=== PATIENT | female | born 1980 ===

== ENCOUNTER 2025-04-21 21:31 | Inpatient (IN) | payer OTHER, SELFPAY ==
[2025-04-21 21:55] VITALS: BMI 38.1
[2025-04-21 22:10] VITALS: BP 121/66; PULSE 75; RESP 18; TEMP 36.7; O2SAT 95
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
[2025-04-22 07:00] VITALS: BMI 38.2
[2025-04-22 07:53] VITALS: BP 100/55; PULSE 74; RESP 16; TEMP 36.6; O2SAT 98
[2025-04-22 08:00] VITALS: BP 100/55; PULSE 74; RESP 16; TEMP 36.6; O2SAT 98
[2025-04-22 09:19] LABS: Estimated Average Glucose 137 mg/dL; Hemoglobin A1C 166.5742 umol/L; Hemoglobin A1c % 6.4 % (<6.0); Total Hemoglobin (HGBA1C) 3557.7658 umol/L
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
[2025-04-22 09:24] LABS: Alanine Aminotransferase 63 U/L (0-31); Albumin Level 4.2 g/dL (3.5-5.0); Alkaline Phosphatase 76 U/L (39-117); Anion Gap 12 (12-20); Aspartate Amino Transferase 64 U/L (5-31); Bilirubin Total 0.4 mg/dL (0.0-1.0); Blood Urea Nitrogen 11 mg/dL (9-16); Calcium 9.4 mg/dL (8.4-10.2); Carbon Dioxide 26 mmol/L (22-29); Chloride 107 mmol/L (96-108); Cholesterol 175 mg/dL (<200); Creatinine Clr Calc Pharmacy 113.1; Estimated Glomerular Filt Rate > 60; Glucose Random 112 mg/dL (60-115); HDL Cholesterol 26 mg/dL (>40); LDL Cholesterol Calculated 112 mg/dL (<100); Potassium 4.2 mmol/L (3.3-5.1); Sodium 141 mmol/L (135-145); Total Protein 7.8 g/dL (6.5-8.0); Triglycerides 187 mg/dL (<150)
[2025-04-22 09:42] LABS: Free T4 (Free Thyroxine) 1.02 ng/dL (0.71-1.85); Thyroid Stimulating Hormone 1.28 uIU/mL (0.32-4.0)
[2025-04-22 09:53] LABS: Folate 12.9 ng/mL (> or = 4.0); Vitamin B12 778 pg/mL (200-900)
[2025-04-22] MEDS: Venlafaxine HCl ER 150 MG CAP.ER.24H PO ×2 (10:34→21:33)
[2025-04-22] MEDS: Atorvastatin Calcium 10 MG TABLET PO (10:34)
[2025-04-22] MEDS: lamoTRIgine 100 MG TABLET PO ×2 (10:34→21:33)
[2025-04-22] MEDS: risperiDONE 1 MG TABLET PO ×2 (10:34→21:33)
[2025-04-22] MEDS: busPIRone HCl 5 MG TABLET PO ×3 (10:34→21:30)
[2025-04-22] MEDS: Gabapentin 300 MG CAPSULE 600 MG PO (10:34)
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
[2025-04-22] MEDS: metFORMIN HCl 1,000 MG TABLET 1000 MG PO (14:21)
[2025-04-22] MEDS: Nicotine 21 MG PATCH.TD24 TRANSDERMA (14:22)
[2025-04-22] MEDS: metFORMIN HCl ER 500 MG TAB.ER.24H 1000 MG PO (17:46)
[2025-04-22] MEDS: hydrOXYzine HCL 25 MG TABLET PO (17:48)
[2025-04-22 19:30] VITALS: BP 122/62; PULSE 95; RESP 16; TEMP 36.4; O2SAT 95
[2025-04-22 21:30] VITALS: BP 119/72
[2025-04-22] MEDS: Doxazosin Mesylate 2 MG TABLET PO (21:30)
[2025-04-23 08:18] VITALS: BP 126/63; PULSE 80; RESP 14; TEMP 36.9; O2SAT 95
[2025-04-23] MEDS: Venlafaxine HCl ER 150 MG CAP.ER.24H PO ×2 (09:04→20:33)
[2025-04-23] MEDS: risperiDONE 1 MG TABLET PO ×2 (09:04→20:33)
[2025-04-23] MEDS: Gabapentin 300 MG CAPSULE 600 MG PO (09:04)
[2025-04-23] MEDS: lamoTRIgine 100 MG TABLET PO ×2 (09:04→20:34)
[2025-04-23] MEDS: busPIRone HCl 5 MG TABLET PO ×3 (09:04→20:33)
[2025-04-23] MEDS: Atorvastatin Calcium 10 MG TABLET PO (09:04)
[2025-04-23] MEDS: Pantoprazole Sodium 20 MG TABLET.DR 40 MG PO (09:07)
--- NOTE | 2025-04-23 09:36 | P.PNPSI_ITS ---
Subjective Subjective Date of Service: 04/23/25 Reason For Visit: bipolar disorder unspecified Subjective Notes: 3 Day Interim History: Patient reports feeling fine today; pt stated, It's really nice here. I feel comfortable . Pt reports she is hoping to return to her sober home when discharged. per nursing, slept 8 hours. denies SI/HI/VH/AH. 3 day up on 03/27/25. continue current tx plan. Medication Compliance: Yes Side effects from medications: No Attending Groups: Intermittent Mental Status Exam Mental Status Exam Narrative: Pt is alert and oriented; behavior is cooperative and calm; dressed in casual attire; mood is described as fine ; eye contact appropriate; Speech is normal rate, volume and not pressured; thought process is organized and goal directed; Thought content is on tx; denies SI/HI/VH/AH. Diagnostics Vital Signs (24Hr): Vital Signs - 24 hr 04/22/25 19:30 04/22/25 21:30 04/23/25 08:18 Temperature 97.6 F 98.5 F Pulse Rate 95 80 Respiratory Rate 16 14 Blood Pressure 122/62 119/72 126/63 Pulse Oximetry 95 95 Oxygen Delivery Method Room Air Room Air BMI result Body Mass Index 38.2 Labs 04/22/25 08:36 Labs: Laboratory Results - last 48 hr 04/22/25 08:36 Sodium 141 Potassium 4.2 Chloride 107 Carbon Dioxide 26 Anion Gap 12 BUN 11 Creatinine 0.64 Estim Creat Clear Calc 113.1 Estimated GFR > 60 Random Glucose 112 Estimat Average Glucose 137 Hemoglobin A1c % 6.4 H Calcium 9.4 Total Bilirubin 0.4 AST 64 H ALT 63 H Alkaline Phosphatase 76 Total Protein 7.8 Albumin 4.2 Triglycerides 187 H Cholesterol 175 LDL Cholesterol, Calc 112 H HDL Cholesterol 26 L Vitamin B12 778 Folate 12.9 TSH 1.28 Free T4 1.02 Medications Medications Current Medications Acetaminophen (Acetaminophen 325 Mg Tablet) 650 mg PO Q6H PRN PRN Reason: Headache/Pain, Scale 1-10 Al Hydroxide/Mg Hydroxide (Magnesium Hydrox/Alum Hydrox 30 Ml Oral.Susp) 30 ml PO Q6H PRN PRN Reason: Heartburn/Nausea Atorvastatin Calcium (Atorvastatin Calcium 10 Mg Tablet) 10 mg PO DAILY [facility] Last Admin: 04/23/25 09:04 Dose: 10 mg Buspirone HCl (Buspirone Hcl 5 Mg Tablet) 5 mg PO TID [facility] Last Admin: 04/23/25 09:04 Dose: 5 mg Diphenoxylate HCl/Atropine (Diphenoxylate/Atrop 2.5/0.025 Tablet) 1 tab PO QID PRN PRN Reason: Diarrhea Doxazosin Mesylate (Doxazosin Mesylate 2 Mg Tablet) 2 mg PO BEDTIME [facility]; Protocol Last Admin: 04/22/25 21:30 Dose: 2 mg Gabapentin (Gabapentin 300 Mg Capsule) 600 mg PO DAILY [facility] Last Admin: 04/23/25 09:04 Dose: 600 mg Hydroxyzine HCl (Hydroxyzine Hcl 25 Mg Tablet) 25 mg PO Q6H PRN PRN Reason: mild anxiety Last Admin: 04/22/25 17:48 Dose: 25 mg Ibuprofen (Ibuprofen 400 Mg Tablet) 400 mg PO BID PRN PRN Reason: edema Lamotrigine (Lamotrigine 100 Mg Tablet) 100 mg PO BID [facility] Last Admin: 04/23/25 09:04 Dose: 100 mg Magnesium Hydroxide (Milk Of Magnesia 30 Ml Oral.Susp) 30 ml PO DAILY PRN PRN Reason: Constipation Metformin HCl (Metformin Hcl Er 500 Mg Tab.Er.24h) 1,000 mg PO DAILY@1700 [facility] Last Admin: 04/22/25 17:46 Dose: 1,000 mg Metformin HCl (Metformin Hcl 1,000 Mg Tablet) 1,000 mg PO DAILY [facility] Last Admin: 04/22/25 14:21 Dose: 1,000 mg Naproxen (Naproxen 500 Mg Tablet) 500 mg PO BID [facility] Last Admin: 04/23/25 09:04 Dose: Not Given Nicotine Polacrilex (Nicotine Polacrilex 2 Mg Gum) 2 mg BUCCAL Q1H PRN PRN Reason: Nicotine Cravings Non-Formulary Medication (Atomoxetine) 40 mg PO DAILY [facility] Non-Formulary Medication (Tirzepatide [Mounjaro]) 5 mg SUBCUT Q7D [facility] Pantoprazole Sodium (Pantoprazole Sodium 20 Mg Tablet.Dr) 40 mg PO DAILY PRN PRN Reason: acid reflux Last Admin: 04/23/25 09:07 Dose: 40 mg Risperidone (Risperidone 1 Mg Tablet) 1 mg PO BID [facility] Last Admin: 04/23/25 09:04 Dose: 1 mg Trazodone HCl (Trazodone Hcl 50 Mg Tablet) 50 mg PO BEDTIME MRX1 PRN PRN Reason: Insomnia Venlafaxine HCl (Venlafaxine Hcl Er 150 Mg Cap.Er.24h) 150 mg PO BID [facility] Last Admin: 04/23/25 09:04 Dose: 150 mg Allergies Allergies Allergy/AdvReac Type Severity Reaction Status Date / Time No Known Allergies Allergy Verified 04/21/25 22:11 Assessment & Plan Assessment & Plan (1) Bipolar disorder: Status: Acute Code(s): F31.9 - Bipolar disorder, unspecified (2) PTSD (post-traumatic stress disorder): Status: Acute Code(s): F43.10 - Post-traumatic stress disorder, unspecified (3) Cocaine use disorder: Status: Acute Code(s): F14.10 - Cocaine abuse, uncomplicated (4) Opioid use disorder in remission: Status: Acute Code(s): F11.91 - Opioid use, unspecified, in remission Plan Patient is a 45-year-old female with history of bipolar disorder, PTSD, cocaine use disorder and opiate use disorder, who self presented to [facility] due to suicidal ideation secondary to increased depression from recently losing her son. Plan: CV 15 minute safety checks Continue home medications Obtain collateral Encourage groups Discharge planning 04/23: Patient reports feeling good today; pt stated, It's really nice here. I feel comfortable . Pt reports she is hoping to return to her sober home when discharged. per nursing, slept 8 hours. denies SI/HI/VH/AH. 3 day up on 03/27/25. continue current tx plan. Patient educated on: diagnosis, medication risk/benefits and therapeutic strategies Reason for continued inpatient stay Substantial Risk for: med/psych decompensation Time Spent With Patient Time: Total time managing care of this patient today _20___ minutes.
[2025-04-23] MEDS: Nicotine Polacrilex 2 MG GUM BUCCAL ×2 (12:44→20:35)
[2025-04-23] MEDS: metFORMIN HCl ER 500 MG TAB.ER.24H 1000 MG PO (17:20)
[2025-04-23] MEDS: hydrOXYzine HCL 25 MG TABLET PO (17:50)
[2025-04-23] MEDS: Diphenoxylate/Atrop 2.5/0.025 TABLET 1 TAB PO (19:08)
[2025-04-23 20:00] VITALS: BP 118/66; PULSE 93; RESP 18; TEMP 37; O2SAT 93
[2025-04-23 20:34] VITALS: BP 118/66
[2025-04-23] MEDS: Doxazosin Mesylate 2 MG TABLET PO (20:34)
[2025-04-23] MEDS: traZODone HCL 50 MG TABLET PO (20:34)
[2025-04-23] MEDS: Ibuprofen 400 MG TABLET PO (20:35)
[2025-04-24 08:10] VITALS: BP 100/52; PULSE 83; RESP 16; TEMP 36.8; O2SAT 93
[2025-04-24] MEDS: Atorvastatin Calcium 10 MG TABLET PO (08:51)
[2025-04-24] MEDS: busPIRone HCl 5 MG TABLET PO ×3 (08:51→21:09)
[2025-04-24] MEDS: Gabapentin 300 MG CAPSULE 600 MG PO (08:51)
[2025-04-24] MEDS: risperiDONE 1 MG TABLET PO ×2 (08:51→21:12)
[2025-04-24] MEDS: Venlafaxine HCl ER 150 MG CAP.ER.24H PO ×2 (08:51→21:11)
[2025-04-24] MEDS: lamoTRIgine 100 MG TABLET PO ×2 (08:51→21:11)
--- NOTE | 2025-04-24 10:17 | HO.PSYCHPN ---
Subjective Subjective Date of Service: 04/24/25 Reason For Visit: bipolar disorder unspecified Subjective Notes: Conditional Voluntary Interim History: Pt slept through the night. She reports she appreciates support given here on the unit. She is still struggling with of son. However, she denies SI/HI. She reports current medications helpful. Review of Systems Review of Systems Denies any shortness of breath, chest pain, dizziness, lightheadedness, abdominal pain or discomfort, nausea vomiting or diarrhea Mental Status Exam Mental Status Exam Narrative: Pt is alert and oriented; behavior is cooperative and calm; dressed in casual attire; mood is described as fine ; eye contact appropriate; Speech is normal rate, volume and not pressured; thought process is organized and goal directed; Thought content is on tx; denies SI/HI/VH/AH. Diagnostics Vital Signs (24Hr): Vital Signs - 24 hr 04/23/25 20:00 04/23/25 20:34 04/24/25 08:10 Temperature 98.6 F 98.2 F Pulse Rate 93 83 Respiratory Rate 18 16 Blood Pressure 118/66 118/66 100/52 L Pulse Oximetry 93 93 Oxygen Delivery Method Room Air Room Air BMI result Body Mass Index 38.2 Labs 04/22/25 08:36 Medications Medications Current Medications Acetaminophen (Acetaminophen 325 Mg Tablet) 650 mg PO Q6H PRN PRN Reason: Headache/Pain, Scale 1-10 Al Hydroxide/Mg Hydroxide (Magnesium Hydrox/Alum Hydrox 30 Ml Oral.Susp) 30 ml PO Q6H PRN PRN Reason: Heartburn/Nausea Atorvastatin Calcium (Atorvastatin Calcium 10 Mg Tablet) 10 mg PO DAILY [facility] Last Admin: 04/24/25 08:51 Dose: 10 mg Buspirone HCl (Buspirone Hcl 5 Mg Tablet) 5 mg PO TID [facility] Last Admin: 04/24/25 08:51 Dose: 5 mg Diphenoxylate HCl/Atropine (Diphenoxylate/Atrop 2.5/0.025 Tablet) 1 tab PO QID PRN PRN Reason: Diarrhea Last Admin: 04/23/25 19:08 Dose: 1 tab Doxazosin Mesylate (Doxazosin Mesylate 2 Mg Tablet) 2 mg PO BEDTIME [facility]; Protocol Last Admin: 04/23/25 20:34 Dose: 2 mg Gabapentin (Gabapentin 300 Mg Capsule) 600 mg PO DAILY [facility] Last Admin: 04/24/25 08:51 Dose: 600 mg Hydroxyzine HCl (Hydroxyzine Hcl 25 Mg Tablet) 25 mg PO Q6H PRN PRN Reason: mild anxiety Last Admin: 04/23/25 17:50 Dose: 25 mg Ibuprofen (Ibuprofen 400 Mg Tablet) 400 mg PO BID PRN PRN Reason: edema Last Admin: 04/23/25 20:35 Dose: 400 mg Lamotrigine (Lamotrigine 100 Mg Tablet) 100 mg PO BID [facility] Last Admin: 04/24/25 08:51 Dose: 100 mg Magnesium Hydroxide (Milk Of Magnesia 30 Ml Oral.Susp) 30 ml PO DAILY PRN PRN Reason: Constipation Metformin HCl (Metformin Hcl Er 500 Mg Tab.Er.24h) 1,000 mg PO DAILY@1700 [facility] Last Admin: 04/23/25 17:20 Dose: 1,000 mg Metformin HCl (Metformin Hcl 1,000 Mg Tablet) 1,000 mg PO DAILY [facility] Last Admin: 04/22/25 14:21 Dose: 1,000 mg Naproxen (Naproxen 500 Mg Tablet) 500 mg PO BID [facility] Last Admin: 04/24/25 09:01 Dose: Not Given Nicotine Polacrilex (Nicotine Polacrilex 2 Mg Gum) 2 mg BUCCAL Q1H PRN PRN Reason: Nicotine Cravings Last Admin: 04/23/25 20:35 Dose: 2 mg Non-Formulary Medication (Atomoxetine) 40 mg PO DAILY [facility] Non-Formulary Medication (Tirzepatide [Mounjaro]) 5 mg SUBCUT Q7D [facility] Pantoprazole Sodium (Pantoprazole Sodium 20 Mg Tablet.Dr) 40 mg PO DAILY PRN PRN Reason: acid reflux Last Admin: 04/23/25 09:07 Dose: 40 mg Risperidone (Risperidone 1 Mg Tablet) 1 mg PO BID [facility] Last Admin: 04/24/25 08:51 Dose: 1 mg Trazodone HCl (Trazodone Hcl 50 Mg Tablet) 50 mg PO BEDTIME MRX1 PRN PRN Reason: Insomnia Last Admin: 04/23/25 20:34 Dose: 50 mg Venlafaxine HCl (Venlafaxine Hcl Er 150 Mg Cap.Er.24h) 150 mg PO BID [facility] Last Admin: 04/24/25 08:51 Dose: 150 mg Allergies Allergies Allergy/AdvReac Type Severity Reaction Status Date / Time No Known Allergies Allergy Verified 04/21/25 22:11 Assessment & Plan Assessment & Plan (1) Bipolar disorder: Status: Acute Code(s): F31.9 - Bipolar disorder, unspecified (2) PTSD (post-traumatic stress disorder): Status: Acute Code(s): F43.10 - Post-traumatic stress disorder, unspecified (3) Cocaine use disorder: Status: Acute Code(s): F14.10 - Cocaine abuse, uncomplicated (4) Opioid use disorder in remission: Status: Acute Code(s): F11.91 - Opioid use, unspecified, in remission Plan Patient is a 45-year-old female with history of bipolar disorder, PTSD, cocaine use disorder and opiate use disorder, who self presented to [facility] due to suicidal ideation secondary to increased depression from recently losing her son. Plan: CV 15 minute safety checks Continue home medications Obtain collateral Encourage groups Discharge planning 04/23: Patient reports feeling good today; pt stated, It's really nice here. I feel comfortable . Pt reports she is hoping to return to her sober home when discharged. per nursing, slept 8 hours. denies SI/HI/VH/AH. 3 day up on 03/27/25. continue current tx plan. 04/24 continue tx. Reason for continued inpatient stay Substantial Risk for: inability to function Time Spent With Patient Time: Total time managing care of this patient today ____ minutes.
[2025-04-24] MEDS: metFORMIN HCl ER 500 MG TAB.ER.24H 1000 MG PO (15:30)
[2025-04-24] MEDS: Lidocaine 4 % Patch ADH..PATCH 1 PATCH TRANSDERMA (15:31)
[2025-04-24] MEDS: hydrOXYzine HCL 25 MG TABLET PO ×2 (15:33→21:09)
[2025-04-24] MEDS: Nicotine Polacrilex 2 MG GUM BUCCAL ×2 (19:30→21:11)
[2025-04-24 20:00] VITALS: BP 123/60; PULSE 97; RESP 18; TEMP 36.6; O2SAT 96
[2025-04-24] MEDS: traZODone HCL 50 MG TABLET PO (21:09)
[2025-04-24] MEDS: Diphenoxylate/Atrop 2.5/0.025 TABLET 1 TAB PO (21:09)
[2025-04-24] MEDS: NaPROXEN 500 MG TABLET PO (21:09)
[2025-04-24] MEDS: Ibuprofen 400 MG TABLET PO (21:11)
[2025-04-24 21:14] VITALS: BP 123/60
[2025-04-24] MEDS: Doxazosin Mesylate 2 MG TABLET PO (21:14)
[2025-04-25 08:22] VITALS: BP 120/59; PULSE 80; RESP 16; TEMP 36.6; O2SAT 99
[2025-04-25] MEDS: Atorvastatin Calcium 10 MG TABLET PO (10:20)
[2025-04-25] MEDS: busPIRone HCl 5 MG TABLET PO ×3 (10:20→21:43)
[2025-04-25] MEDS: risperiDONE 1 MG TABLET PO ×2 (10:20→21:43)
[2025-04-25] MEDS: Venlafaxine HCl ER 150 MG CAP.ER.24H PO ×2 (10:20→21:43)
[2025-04-25] MEDS: Gabapentin 300 MG CAPSULE 600 MG PO (10:20)
[2025-04-25] MEDS: Lidocaine 4 % Patch ADH..PATCH 1 PATCH TRANSDERMA (10:21)
[2025-04-25] MEDS: lamoTRIgine 100 MG TABLET PO ×2 (10:21→21:43)
[2025-04-25] MEDS: hydrOXYzine HCL 25 MG TABLET PO (14:36)
[2025-04-25] MEDS: Nicotine Polacrilex 2 MG GUM BUCCAL ×2 (14:36→21:44)
[2025-04-25] MEDS: metFORMIN HCl ER 500 MG TAB.ER.24H 1000 MG PO (16:40)
[2025-04-25 20:01] VITALS: BP 113/64; PULSE 89; RESP 18; TEMP 36.9; O2SAT 95
[2025-04-25 21:43] VITALS: BP 125/66
[2025-04-25] MEDS: traZODone HCL 50 MG TABLET PO (21:43)
[2025-04-25] MEDS: Doxazosin Mesylate 2 MG TABLET PO (21:43)
--- NOTE | 2025-04-25 21:48 | HO.PSYCHPN ---
Subjective Subjective Date of Service: 04/25/25 Reason For Visit: bipolar disorder unspecified Subjective Notes: Conditional Voluntary Interim History: Pt slept through the night. She reports she appreciates support given here on the unit. She is still struggling with of son. However, she denies SI/HI. She reports current medications helpful. Review of Systems Review of Systems Denies any shortness of breath, chest pain, dizziness, lightheadedness, abdominal pain or discomfort, nausea vomiting or diarrhea Mental Status Exam Mental Status Exam Narrative: Pt is alert and oriented; behavior is cooperative and calm; dressed in casual attire; mood is described as fine ; eye contact appropriate; Speech is normal rate, volume and not pressured; thought process is organized and goal directed; Thought content is on tx; denies SI/HI/VH/AH. Diagnostics Vital Signs (24Hr): Vital Signs - 24 hr 04/25/25 08:22 04/25/25 20:01 04/25/25 21:43 Temperature 97.9 F 98.5 F Pulse Rate 80 89 Respiratory Rate 16 18 Blood Pressure 120/59 L 113/64 125/66 Pulse Oximetry 99 95 Oxygen Delivery Method Room Air Room Air BMI result Body Mass Index 38.2 Labs 04/22/25 08:36 Medications Medications Current Medications Acetaminophen (Acetaminophen 325 Mg Tablet) 650 mg PO Q6H PRN PRN Reason: Headache/Pain, Scale 1-10 Al Hydroxide/Mg Hydroxide (Magnesium Hydrox/Alum Hydrox 30 Ml Oral.Susp) 30 ml PO Q6H PRN PRN Reason: Heartburn/Nausea Atorvastatin Calcium (Atorvastatin Calcium 10 Mg Tablet) 10 mg PO DAILY [facility] Last Admin: 04/25/25 10:20 Dose: 10 mg Buspirone HCl (Buspirone Hcl 5 Mg Tablet) 5 mg PO TID [facility] Last Admin: 04/25/25 21:43 Dose: 5 mg Diphenoxylate HCl/Atropine (Diphenoxylate/Atrop 2.5/0.025 Tablet) 1 tab PO QID PRN PRN Reason: Diarrhea Last Admin: 04/24/25 21:09 Dose: 1 tab Doxazosin Mesylate (Doxazosin Mesylate 2 Mg Tablet) 2 mg PO BEDTIME [facility]; Protocol Last Admin: 04/25/25 21:43 Dose: 2 mg Gabapentin (Gabapentin 300 Mg Capsule) 600 mg PO DAILY [facility] Last Admin: 04/25/25 10:20 Dose: 600 mg Hydroxyzine HCl (Hydroxyzine Hcl 25 Mg Tablet) 25 mg PO Q6H PRN PRN Reason: mild anxiety Last Admin: 04/25/25 14:36 Dose: 25 mg Ibuprofen (Ibuprofen 400 Mg Tablet) 400 mg PO BID PRN PRN Reason: edema Last Admin: 04/24/25 21:11 Dose: 400 mg Lamotrigine (Lamotrigine 100 Mg Tablet) 100 mg PO BID [facility] Last Admin: 04/25/25 21:43 Dose: 100 mg Lidocaine (Lidocaine 4 % Patch Adh..Patch) 1 patch TRANSDERMA DAILY [facility]; Protocol Last Admin: 04/25/25 10:21 Dose: 1 patch Magnesium Hydroxide (Milk Of Magnesia 30 Ml Oral.Susp) 30 ml PO DAILY PRN PRN Reason: Constipation Metformin HCl (Metformin Hcl Er 500 Mg Tab.Er.24h) 1,000 mg PO DAILY@1700 [facility] Last Admin: 04/25/25 16:40 Dose: 1,000 mg Naproxen (Naproxen 500 Mg Tablet) 500 mg PO BID [facility] Last Admin: 04/25/25 21:45 Dose: Not Given Nicotine Polacrilex (Nicotine Polacrilex 2 Mg Gum) 2 mg BUCCAL Q1H PRN PRN Reason: Nicotine Cravings Last Admin: 04/25/25 21:44 Dose: 2 mg Non-Formulary Medication (Atomoxetine) 40 mg PO DAILY [facility] Non-Formulary Medication (Tirzepatide [Mounjaro]) 5 mg SUBCUT Q7D [facility] Pantoprazole Sodium (Pantoprazole Sodium 20 Mg Tablet.Dr) 40 mg PO DAILY PRN PRN Reason: acid reflux Last Admin: 04/23/25 09:07 Dose: 40 mg Risperidone (Risperidone 1 Mg Tablet) 1 mg PO BID [facility] Last Admin: 04/25/25 21:43 Dose: 1 mg Trazodone HCl (Trazodone Hcl 50 Mg Tablet) 50 mg PO BEDTIME MRX1 PRN PRN Reason: Insomnia Last Admin: 04/25/25 21:43 Dose: 50 mg Venlafaxine HCl (Venlafaxine Hcl Er 150 Mg Cap.Er.24h) 150 mg PO BID [facility] Last Admin: 04/25/25 21:43 Dose: 150 mg Allergies Allergies Allergy/AdvReac Type Severity Reaction Status Date / Time No Known Allergies Allergy Verified 04/21/25 22:11 Assessment & Plan Assessment & Plan (1) Bipolar disorder: Status: Acute Code(s): F31.9 - Bipolar disorder, unspecified (2) PTSD (post-traumatic stress disorder): Status: Acute Code(s): F43.10 - Post-traumatic stress disorder, unspecified (3) Cocaine use disorder: Status: Acute Code(s): F14.10 - Cocaine abuse, uncomplicated (4) Opioid use disorder in remission: Status: Acute Code(s): F11.91 - Opioid use, unspecified, in remission Plan Patient is a 45-year-old female with history of bipolar disorder, PTSD, cocaine use disorder and opiate use disorder, who self presented to [facility] due to suicidal ideation secondary to increased depression from recently losing her son. Plan: CV 15 minute safety checks Continue home medications Obtain collateral Encourage groups Discharge planning 04/23: Patient reports feeling good today; pt stated, It's really nice here. I feel comfortable . Pt reports she is hoping to return to her sober home when discharged. per nursing, slept 8 hours. denies SI/HI/VH/AH. 3 day up on 03/27/25. continue current tx plan. 04/24 continue tx. 04/25 continue tx. Reason for continued inpatient stay Substantial Risk for: inability to function Time Spent With Patient Time: Total time managing care of this patient today ____ minutes.
[2025-04-26 08:03] VITALS: BP 104/56; PULSE 79; RESP 14; TEMP 36.6; O2SAT 93
[2025-04-26] MEDS: Atorvastatin Calcium 10 MG TABLET PO (08:32)
[2025-04-26] MEDS: busPIRone HCl 5 MG TABLET PO ×3 (08:32→21:34)
[2025-04-26] MEDS: Gabapentin 300 MG CAPSULE 600 MG PO (08:32)
[2025-04-26] MEDS: lamoTRIgine 100 MG TABLET PO ×2 (08:32→21:34)
[2025-04-26] MEDS: Venlafaxine HCl ER 150 MG CAP.ER.24H PO ×2 (08:32→21:34)
[2025-04-26] MEDS: risperiDONE 1 MG TABLET PO ×2 (08:32→21:33)
[2025-04-26] MEDS: Lidocaine 4 % Patch ADH..PATCH 1 PATCH TRANSDERMA (09:40)
--- NOTE | 2025-04-26 09:42 | P.PNPSI_ITS ---
Subjective Subjective Date of Service: 04/26/25 Reason For Visit: bipolar disorder unspecified Subjective Notes: Conditional Voluntary Interim History: Patient reports feeling anxious about returning to program tomorrow. However, she is looking forward to discharge. pt denies SI/HI/VH/AH. Pt plans on following up with her outpatient providers. Medication Compliance: Yes Side effects from medications: No Mental Status Exam Mental Status Exam Narrative: Pt is alert and oriented; behavior is cooperative and calm; dressed in casual attire; mood is described as good ; eye contact appropriate; Speech is normal rate, volume and not pressured; thought process is organized; Thought content is on tx; denies SI/HI/VH/AH. Diagnostics Vital Signs (24Hr): Vital Signs - 24 hr 04/25/25 20:01 04/25/25 21:43 04/26/25 08:03 Temperature 98.5 F 97.8 F Pulse Rate 89 79 Respiratory Rate 18 14 Blood Pressure 113/64 125/66 104/56 L Pulse Oximetry 95 93 Oxygen Delivery Method Room Air Room Air BMI result Body Mass Index 38.2 Labs 04/22/25 08:36 Medications Medications Current Medications Acetaminophen (Acetaminophen 325 Mg Tablet) 650 mg PO Q6H PRN PRN Reason: Headache/Pain, Scale 1-10 Al Hydroxide/Mg Hydroxide (Magnesium Hydrox/Alum Hydrox 30 Ml Oral.Susp) 30 ml PO Q6H PRN PRN Reason: Heartburn/Nausea Atorvastatin Calcium (Atorvastatin Calcium 10 Mg Tablet) 10 mg PO DAILY [facility] Last Admin: 04/26/25 08:32 Dose: 10 mg Buspirone HCl (Buspirone Hcl 5 Mg Tablet) 5 mg PO TID [facility] Last Admin: 04/26/25 08:32 Dose: 5 mg Diphenoxylate HCl/Atropine (Diphenoxylate/Atrop 2.5/0.025 Tablet) 1 tab PO QID PRN PRN Reason: Diarrhea Last Admin: 04/24/25 21:09 Dose: 1 tab Doxazosin Mesylate (Doxazosin Mesylate 2 Mg Tablet) 2 mg PO BEDTIME [facility]; Protocol Last Admin: 04/25/25 21:43 Dose: 2 mg Gabapentin (Gabapentin 300 Mg Capsule) 600 mg PO DAILY [facility] Last Admin: 04/26/25 08:32 Dose: 600 mg Hydroxyzine HCl (Hydroxyzine Hcl 25 Mg Tablet) 25 mg PO Q6H PRN PRN Reason: mild anxiety Last Admin: 04/25/25 14:36 Dose: 25 mg Lamotrigine (Lamotrigine 100 Mg Tablet) 100 mg PO BID [facility] Last Admin: 04/26/25 08:32 Dose: 100 mg Lidocaine (Lidocaine 4 % Patch Adh..Patch) 1 patch TRANSDERMA DAILY [facility]; Protocol Last Admin: 04/26/25 09:40 Dose: 1 patch Magnesium Hydroxide (Milk Of Magnesia 30 Ml Oral.Susp) 30 ml PO DAILY PRN PRN Reason: Constipation Metformin HCl (Metformin Hcl Er 500 Mg Tab.Er.24h) 1,000 mg PO DAILY@1700 [facility] Last Admin: 04/25/25 16:40 Dose: 1,000 mg Nicotine Polacrilex (Nicotine Polacrilex 2 Mg Gum) 2 mg BUCCAL Q1H PRN PRN Reason: Nicotine Cravings Last Admin: 04/25/25 21:44 Dose: 2 mg Non-Formulary Medication (Atomoxetine) 40 mg PO DAILY [facility] Non-Formulary Medication (Tirzepatide [Mounjaro]) 5 mg SUBCUT Q7D [facility] Pantoprazole Sodium (Pantoprazole Sodium 20 Mg Tablet.Dr) 40 mg PO DAILY PRN PRN Reason: acid reflux Last Admin: 04/23/25 09:07 Dose: 40 mg Risperidone (Risperidone 1 Mg Tablet) 1 mg PO BID [facility] Last Admin: 04/26/25 08:32 Dose: 1 mg Trazodone HCl (Trazodone Hcl 50 Mg Tablet) 50 mg PO BEDTIME MRX1 PRN PRN Reason: Insomnia Last Admin: 04/25/25 21:43 Dose: 50 mg Venlafaxine HCl (Venlafaxine Hcl Er 150 Mg Cap.Er.24h) 150 mg PO BID [facility] Last Admin: 04/26/25 08:32 Dose: 150 mg Allergies Allergies Allergy/AdvReac Type Severity Reaction Status Date / Time No Known Allergies Allergy Verified 04/21/25 22:11 Assessment & Plan Assessment & Plan (1) Bipolar disorder: Status: Acute Code(s): F31.9 - Bipolar disorder, unspecified (2) PTSD (post-traumatic stress disorder): Status: Acute Code(s): F43.10 - Post-traumatic stress disorder, unspecified (3) Cocaine use disorder: Status: Acute Code(s): F14.10 - Cocaine abuse, uncomplicated (4) Opioid use disorder in remission: Status: Acute Code(s): F11.91 - Opioid use, unspecified, in remission Plan Patient is a 45-year-old female with history of bipolar disorder, PTSD, cocaine use disorder and opiate use disorder, who self presented to [facility] due to suicidal ideation secondary to increased depression from recently losing her son. Plan: CV 15 minute safety checks Continue home medications Obtain collateral Encourage groups Discharge planning 04/23: Patient reports feeling good today; pt stated, It's really nice here. I feel comfortable . Pt reports she is hoping to return to her sober home when discharged. per nursing, slept 8 hours. denies SI/HI/VH/AH. 3 day up on 03/27/25. continue current tx plan. 04/24 continue tx. 04/26: Patient reports feeling anxious about returning to program tomorrow. However, she is looking forward to discharge. pt denies SI/HI/VH/AH. Pt plans on following up with her outpatient providers. Patient educated on: diagnosis and medication risk/benefits Reason for continued inpatient stay Substantial Risk for: stable for discharge Time Spent With Patient Time: Total time managing care of this patient today _20___ minutes.
[2025-04-26] MEDS: metFORMIN HCl ER 500 MG TAB.ER.24H 1000 MG PO (17:13)
[2025-04-26 20:42] VITALS: BP 116/72; PULSE 107; RESP 16; TEMP 37.1; O2SAT 95
[2025-04-26] MEDS: traZODone HCL 50 MG TABLET PO (21:33)
[2025-04-26] MEDS: Doxazosin Mesylate 2 MG TABLET PO (21:34)
[2025-04-26] MEDS: Nicotine Polacrilex 2 MG GUM BUCCAL (21:38)
[2025-04-27] MEDS: hydrOXYzine HCL 25 MG TABLET PO (04:44)
[2025-04-27] MEDS: Acetaminophen 325 MG TABLET 650 MG PO (04:44)
[2025-04-27 08:00] VITALS: BP 110/70; PULSE 83; RESP 16; O2SAT 96
[2025-04-27] MEDS: Pantoprazole Sodium 20 MG TABLET.DR 40 MG PO (08:25)
[2025-04-27] MEDS: Atorvastatin Calcium 10 MG TABLET PO (08:25)
[2025-04-27] MEDS: Venlafaxine HCl ER 150 MG CAP.ER.24H PO (08:26)
[2025-04-27] MEDS: Gabapentin 300 MG CAPSULE 600 MG PO (08:26)
[2025-04-27] MEDS: busPIRone HCl 5 MG TABLET PO (08:26)
[2025-04-27] MEDS: lamoTRIgine 100 MG TABLET PO (08:27)
[2025-04-27] MEDS: risperiDONE 1 MG TABLET PO (08:27)
--- NOTE | 2025-04-27 09:00 | PM.PSYDC ---
DS: Providers Provider Date of Service: 04/27/25 Date of admission: 04/21/25 21:31 Date of discharge: 04/27/25 Primary care physician: Unknown Physician Admitting clinician: Carley Aldrich Attending physician on admission: Tyson Spencer Consults: 04/21/25 22:11 Consult to Hospitalist Routine Comment: Consulting Provider: [facility] Reason For Exam: medical H&P Attending physician on discharge: Tyson Spencer Discharging clinician: Carley Aldrich DS: Diagnosis Discharge Diagnosis (1) Bipolar disorder: Status: Acute (2) PTSD (post-traumatic stress disorder): Status: Acute (3) Cocaine use disorder: Status: Acute (4) Opioid use disorder in remission: Status: Acute DS: Medications Discharge Medications Home Medications: Home Medications ?Medication ?Instructions ?Recorded ?Confirmed albuterol sulfate 90 mcg/actuation inhalation 04/22/25 aerosol inhaler albuterol sulfate 90 mcg/actuation inhalation 04/22/25 aerosol inhaler (Ventolin HFA) atomoxetine 40 mg capsule 40 mg PO QAM 04/22/25 04/22/25 atorvastatin 10 mg tablet 10 mg PO DAILY 04/22/25 04/22/25 buspirone 5 mg tablet 5 mg PO TID 04/22/25 04/22/25 doxazosin 1 mg tablet 2 mg PO BEDTIME 04/22/25 04/22/25 gabapentin 300 mg capsule 600 mg PO DAILY 04/22/25 04/22/25 hydroxyzine HCl 25 mg tablet 25 mg PO TID 04/22/25 04/22/25 ibuprofen 200 mg tablet 400 mg PO BID PRN edema 04/22/25 04/22/25 lamotrigine 100 mg tablet 100 mg PO BID 04/22/25 04/22/25 metformin 500 mg tablet,extended 1,000 mg PO DAILY@1700 04/22/25 04/22/25 release 24 hr naproxen sodium 550 mg tablet 550 mg PO BID 04/22/25 04/22/25 naproxen sodium 550 mg tablet 550 mg PO BID 04/22/25 04/22/25 pantoprazole 40 mg tablet,delayed 40 mg PO DAILY PRN acid reflux 04/22/25 04/22/25 release pantoprazole 40 mg tablet,delayed 40 mg PO DAILY PRN acid reflux 04/22/25 04/22/25 release risperidone 1 mg tablet 1 mg PO BID 04/22/25 04/22/25 tirzepatide 5 mg/0.5 mL 5 mg subcut QWEEK 04/22/25 04/22/25 subcutaneous pen injector (Brenden) venlafaxine 150 mg 150 mg PO BID 04/22/25 04/22/25 capsule,extended release 24 hr Mental Status Exam Mental Status Exam Narrative: Pt is alert and oriented; behavior is cooperative and calm; dressed in casual attire; mood is described as good ; eye contact appropriate; Speech is normal rate, volume and not pressured; thought process is organized; Thought content is on tx; denies SI/HI/VH/AH. Data Data Completed and Pending Completed studies during hospitalization [Text1]: 04/22/25 08:36 Sodium 141 Potassium 4.2 Chloride 107 Carbon Dioxide 26 Anion Gap 12 BUN 11 Creatinine 0.64 Estim Creat Clear Calc 113.1 Estimated GFR > 60 Random Glucose 112 Estimat Average Glucose 137 Hemoglobin A1c % 6.4 H Calcium 9.4 Total Bilirubin 0.4 AST 64 H ALT 63 H Alkaline Phosphatase 76 Total Protein 7.8 Albumin 4.2 Triglycerides 187 H Cholesterol 175 LDL Cholesterol, Calc 112 H HDL Cholesterol 26 L Vitamin B12 778 Folate 12.9 TSH 1.28 Free T4 1.02 DS: Summary Hospital Course Hospital Course: Patient is a 45-year-old female with history of bipolar disorder, PTSD, cocaine use disorder and opiate use disorder, who self presented to [facility] due to suicidal ideation secondary to increased depression from recently losing her son. Per crisis report, patient reports she recently lost her son on 03/16/2025 via motorcycle accident and has had thoughts of wanting to join him via hanging herself or cutting her throat. Patient reports she has other children and has been trying to talk herself out of completing suicide. She reports that she relapsed on crack cocaine a few days ago after being clean for 6 months. Patient has been residing in a sober home for the past 6 months. Due to her loss of her son she recently relapsed and reports increased depression and thoughts of wanting to harm herself. She attends a day program 3 days a week and is currently engaged with outpatient providers. History of suicide attempts via overdosing on multiple medications. And cutting both wrists which required medical intervention. History of opiate and cocaine use. During admission assessment, patient presents alert and oriented x3. Calm and cooperative. Patient reports feeling depressed; patient stated, I relapsed a couple of days ago because of all the stress. I always have suicidal thoughts in my head. I thought about being with my son. I just have to learn to be without him . Patient reports she would not act on her thoughts due to wanting to be there for her other children . Patient stated, the thoughts come and go. I'm just depressed. I don't want to . I want to be there for my kids . Patient reports she feels her current medication regimen is helpful and stated, I feel like my meds help outside the normal grief I'm having . Patient reports she is looking forward to being away from the program for a few days. Patient stated, I just want to go to groups. I should be okay . Patient currently denies HI/VH/AH. Patient reports chronic suicidal ideation with no plan or intent. Plan: CV 15 minute safety checks Continue home medications Obtain collateral Encourage groups Discharge planning Patient reports feeling good today; pt stated, It's really nice here. I feel comfortable . Pt reports she is hoping to return to her sober home when discharged. per nursing, slept 8 hours. denies SI/HI/VH/AH. 3 day up on 03/27/25. continue current tx plan. Patient reports feeling anxious about returning to program tomorrow. However, she is looking forward to discharge. pt denies SI/HI/VH/AH. Pt plans on following up with her outpatient providers. Status at Discharge Cognitive/behavioral status at discharge: Patient has insight and demonstrates good judgment in terms of wanting to pursue treatment. Patient has a safety plan that includes presenting to the closest ER or calling 911 if feeling unsafe. Functional status at discharge: independent ambulation Overall status at discharge: patient is back to baseline Time Spent with Patient Time spent: Less than 30 minutes Discharge Plan Discharge Anticipated Discharge Date/Time: 04/27/25 11:00 Patient Disposition: Home, Self-Care Discharge Diagnosis: Bipolar d/o, PTSD, Cocaine use d/o, opioid use d/o Referrals: [facility] (Therapy) [Other] - 1 Week (*Please follow up with your therapist to schedule your next appointment. ) Jim Koch (Psychiatry) [Other] - 1 Week (*Please follow up with your prescriber to schedule your next appointment. ) Divine Gallardo [employer] [Other] - 05/18/25 11:00 am (04-27-25 Your follow up appt has been scheduled on 05-18-25 @ 11am) Discharge Medications: Continued buspirone 5 mg tablet 5 mg PO TID atorvastatin 10 mg tablet 10 mg PO DAILY doxazosin 1 mg tablet 2 mg PO BEDTIME venlafaxine 150 mg capsule,extended release 24hr 150 mg PO BID pantoprazole 40 mg tablet,delayed release (DR/EC) 40 mg PO DAILY PRN (Reason: acid reflux) naproxen sodium 550 mg tablet 550 mg PO BID ibuprofen 200 mg tablet 400 mg PO BID PRN (Reason: edema) gabapentin 300 mg capsule 600 mg PO DAILY hydroxyzine HCl 25 mg tablet 25 mg PO TID albuterol sulfate [Ventolin HFA] 90 mcg/actuation HFA aerosol inhaler inhalation albuterol sulfate 90 mcg/actuation HFA aerosol inhaler inhalation metformin 500 mg tablet extended release 24 hr 1,000 mg PO DAILY@1700 risperidone 1 mg tablet 1 mg PO BID lamotrigine 100 mg tablet 100 mg PO BID atomoxetine 40 mg capsule 40 mg PO QAM Mounjaro 5 mg/0.5 mL pen injector 5 mg SUBCUT QWEEK Discontinued pantoprazole 40 mg tablet,delayed release (DR/EC) 40 mg PO DAILY PRN (Reason: acid reflux) naproxen sodium 550 mg tablet 550 mg PO BID Discharge Orders: Discharge Order (Routine); Ordered 04/27/25 Ordered By: Carley Aldrich Diet: Regular diet Activity on Discharge: As tolerated Stand Alone Forms: Patient Portal Discharge page, Community Support Print Language: Italian Care Plan Goals: Maintain mood and safe behaviors Take medications as prescribed Continue to pursue sobriety Practice coping skills Continue with outpatient providers and reach out to them as needed Health Concerns: Mood stability and behaviors Sobriety Plan of Treatment: Follow up with your PCP, psychiatric provider and other outpatient providers regarding above concerns Take medications as prescribed Assessment: Patient has insight and demonstrates good judgment in terms of wanting to pursue treatment. Patient has a safety plan that includes presenting to the closest ER or calling 911 if feeling unsafe. Discharge Date/Time: 04/27/25 11:00
[2025-04-27] MEDS: Naloxone HCl Nasal TAKE HOME 4 MG SPRAY 8 MG NOSTRILALT (09:49)
== END 2025-04-27 11:00 | disposition home or self-care (01) | DRG 885 ==
PROVIDERS: Social Worker; Admitting Provider Psychiatry & Neurology Psychiatry; Responsible Provider Registered Nurse; Visit Provider Psychiatry & Neurology Psychiatry
DX: F31.9 Bipolar disorder, unspecified (principal); R45.851 Suicidal ideations; F43.10 Post-traumatic stress disorder, unspecified; Z63.4 Disappearance and death of family member; F17.210 Nicotine dependence, cigarettes, uncomplicated; F11.90 Opioid use, unspecified, uncomplicated; E11.9 Type 2 diabetes mellitus without complications; Z71.6 Tobacco abuse counseling; F14.10 Cocaine abuse, uncomplicated; Z79.84 Long term (current) use of oral hypoglycemic drugs; Z79.85 Long-term (current) use of injectable non-insulin antidiabetic drugs; Z79.899 Other long term (current) drug therapy
CPT/HCPCS: 36415; 80053; 80061; 82607; 82746; 83036; 84439; 84443

== ENCOUNTER → 2025-04-21 21:31 | Outpatient (BNV) | payer OTHER, SELFPAY | PROVIDERS: Admitting Provider Psychiatry & Neurology Psychiatry; Responsible Provider Registered Nurse; Visit Provider Social Worker | DX: F31.4 Bipolar disorder, current episode depressed, severe, without psychotic features (principal); F14.10 Cocaine abuse, uncomplicated; F43.11 Post-traumatic stress disorder, acute; F11.91 Opioid use, unspecified, in remission | CPT/HCPCS: 90792; 99231; 99238 ==

== ENCOUNTER → 2025-04-21 21:31 | Outpatient (BNV) | payer OTHER, SELFPAY | PROVIDERS: Admitting Provider Psychiatry & Neurology Psychiatry; Visit Provider Nurse Practitioner Family | DX: Z00.8 Encounter for other general examination (principal); E11.9 Type 2 diabetes mellitus without complications; E78.5 Hyperlipidemia, unspecified | CPT/HCPCS: 99429 ==